=== PATIENT | male | born 1990 | race Caucasian/White ===

== ENCOUNTER 2024-08-23 23:12 | Emergency (ER) | payer OTHER ==
[~2024-08-23] VITALS: Ht 175.3 cm; Wt 103.9 kg
[2024-08-24] VITALS: BP 135/82; PULSE 121; RESP 18; TEMP 101.7; O2SAT 94
--- NOTE | 2024-08-24 01:40 | ERN ---
General Chief Complaint: Palpitations Stated Complaint: C/O PALPITATIONS AND FEELING "VERY SLUGGISH" Time Seen by MD: 23:52 History of Present Illness Initial Comments 34-year-old male previously healthy has been feeling under the weather warm with heart palpitations and just known overall feeling of being sluggish. It does not seem to have any symptoms of an infection anywhere no upper respiratory tract infection symptoms no difficulty breathing no chest pain no diarrhea. No urinary symptoms no GI symptoms. Only past medical history is hypertension, he was recently switched from losartan to talmisartan/hydrochlorothiazide. Timing/Duration: 1 week, getting worse Allergies: Coded Allergies: No Known Allergies (Unverified Allergy, Unknown, 08/23/24) Past Medical History Past Medical History: Hypertension Past Surgical History: Other Constitutional: (-) chills, (-) diaphoresis, (-) fever, (-) malaise, (-) weakness, (-) other documentation EENTM: (-) eye pain, (-) blurred vision, (-) tearing, (-) double vision, (-) ear pain, (-) ear discharge, (-) nose pain, (-) nose congestion, (-) throat pain, (-) Throat swelling, (-) mouth pain, (-) tooth pain, (-) mouth swelling, (-) other documentation Respiratory: (-) cough, (-) orthopnea, (-) short of breath, (-) stridor, (-) wheezing, (-) other documentation Cardiovascular: (-) chest pain, (-) edema, (-) palpitations, (-) syncope, (-) dyspnea on exertion, (-) other documentation Gastrointestinal/Abdominal: (-) nausea, (-) vomiting, (-) diarrhea, (-) abdominal pain, (-) abdominal distention, (-) constipation, (-) rectal bleeding, (-) dark stool/melena, (-) other documentation Musculoskeletal: (-) Neck pain, (-) back pain, (-) Flank Pain, (-) joint pain, (-) joint swelling, (-) muscle pain, (-) muscle stiffness, (-) gout, (-) other documentation Skin: (-) laceration, (-) contusion, (-) abrasion, (-) abscess, (-) rash, (-) change in color, (-) change in hair, (-) change in nails, (-) diaphoresis, (-) dryness, (-) other documentation Physical Exam General Appearance: (+) mild distress Orientation: (+) alert, (+) oriented x 3 Head/Face Trauma: No Eye: bilateral eye normal inspection, bilateral eye PERRL, bilateral eye EOMI Ear, Nose, Throat: (+) hearing grossly normal, (+) normal ENT inspection, (+) moist mucous membraine Neck: (+) normal inspection, (+) supple, (+) full range of motion Respiratory: (+) chest non-tender, (+) lungs clear, (+) well ventilated Heart: (+) no gallop, (+) tachycardia Vascular: (+) no edema, (+) normal peripheral pulse Gastrointestinal: (+) soft, (+) non-tender Results Laboratory and Microbiology Lab and Micro Result Laboratory Tests Test 08/24/24 01:24 Group A Streptococcus Rapid negative (NEGATIVE) MDM MDM: Differential diagnosis: Dehydration, infection of some kind, hyperthyroidism, c ardiac disease, Rationale: Tests considered and ordered secondary to shared decision making include: Previous outside records reviewed: Old ER visits. Risk of complication and/or morbidity or mortality of patient management: None Medications-Per medication reconciliation Need for hospitalization: Patient does not meet criteria for hospitalization. Need for emergency major/minor surgery: No There are no social concerns with this patient. Prescription drug management Prescriptions will include symptomatic care Patient's prior external medical records from other ER visits were reviewed by me as indicated. Prior testing and results from previous visits were reviewed. Prior tests were taken into account with medical decision making and resource utilization, independent historian/historians were used to obtain complete medical history. I independently interpreted the test that were performed, results were reviewed by me and considered findings on radiology if ordered. I will give the patient 2 L of fluid. I will check his cardiac enzymes. His EKG shows sinus tach with no ischemic changes. We will check the patient's urine and TSH. I will get a chest x-ray. While the nurse was getting ready to put in an IV and draw labs the patient decided to leave the emergency room. He stated that he has an appointment in the morning with his doctor and that he will get all of the lab draws that he needs then. I explained to the patient that I need to see some of the labs in order to better diagnose and treat his sinus tachycardia. Also it would allow me to give him some fluid. The patient is still felt that he would rather see his regular doctor in the morning. I discharged him from the emergency room. ED Course Orders Procedure Category Date Status Time Cbc With Differential LAB 08/24/24 Logged 01:05 Comprehensive LAB 08/24/24 Logged Metabolic Panel 01:05 Covid19 (Sars Antigen LAB 08/24/24 In Process Rapid) 01:05 Influenza Type A & B, LAB 08/24/24 In Process Rapid 01:05 Lactic Acid LAB 08/24/24 Logged 01:05 Rapid (Group A Strep) LAB 08/24/24 In Process 01:05 Troponin I High LAB 08/24/24 Logged Sensitivity 01:05 Urinalysis Profile LAB 08/24/24 Logged 01:05 Lactated Ringers PHA 08/24/24 Complete 1000ml (Lactated 01:05 Tsh High Sensitivity LAB 08/24/24 Logged 01:40 Current Medications Medications (Trade) Dose Ordered Sig/Tamia Route PRN Reason Start Time Stop Time Status Last Admin Dose Admin Lactated Ringer's (Lactated Ringers 1000ml) 2,000 ml BOLUS STAT IV 08/24/24 01:05 08/24/24 01:09 DC Vital Signs Date Time Temp Pulse Resp B/P (MAP) Pulse Ox O2 Delivery O2 Flow Rate FiO2 08/24/24 00:00 101.7 121 18 135/82 94 Room Air* 0 21 08/23/24 23:19 100.0 133 20 140/95 98 Room Air DX & DISP Disposition: Discharge Departure Impression: Primary Impression: Sinus tachycardia Condition: Stable Referrals: SELF,REFERRAL (PCP) KHALIF ELLIOTT MD Aug 24, 2024 01:40
--- NOTE | 2024-08-24 01:50 | NUR ---
PT REFUSING LAB DRAWS, STATES HE WANTS TO LEAVE AMA
[2024-08-24] MEDS: LACTATED RINGERS 1000ML IV STA (01:51)
--- NOTE | 2024-08-24 01:51 | NUR ---
PT STATES HE WANTS TO LEAVE AMA. RISKS FOR LEAVING AMA EXPLAINED TO PT AND FAMILY AT BEDSIDE. ED MD MADE AWARE. PT SIGNED AMA FORM.
[2024-08-24 02:10] LABS: RAPID GROUP A STREP negative (NEGATIVE)
[2024-08-24 02:17] LABS: COVID19 (SARS ANTIGEN RAPID) PRESUMPTIVE NEGATIVE (NEGATIVE); INFLUENZA TYPE A Negative For Type A (NEGATIVE); INFLUENZA TYPE B Negative For Type B (NEGATIVE)
--- NOTE | 2024-08-24 10:40 | EKG ---
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
== END 2024-08-24 01:54 | disposition left against medical advice (07) ==
LOC: EDH 23:12
DX: R00.0 Tachycardia, unspecified (principal); I10 Essential (primary) hypertension; Z20.822 Contact with and (suspected) exposure to COVID-19
CPT/HCPCS: 87426; 87804; 87880; 93005; 99281; 99284